=== PATIENT | male | born 1945 | race Two or more races ===

== ENCOUNTER 2025-04-03 20:44 | Inpatient (IN) | payer OTHER ==
[~2025-04-03] VITALS: Ht 172.7 cm; Wt 86.2 kg
[2025-04-03] MEDS ORDERED: FUROSEMIDE20 MG PO (20:52)
[2025-04-03] MEDS ORDERED: FARXIGA5 MG (20:52)
[2025-04-03] MEDS ORDERED: [UNRECOGNIZED DRUG - OTHER] (20:53)
[2025-04-03] MEDS ORDERED: ATORVASTATIN CA10 MG (20:53)
--- NOTE | 2025-04-03 21:03 | NUR ---
PACIENTE ALERTA Y ORIENTADO X3 QUIEN REFIERE VENIR POR DOLOR ABDOMINAL EL CUAL SE HABIA REALIZADO UNOS ESTUDIOS Y RESULTADOS LE LLEAGRON HACE 1-2 YA SOBRE PIEDRAS EN LA VESICULA.
[2025-04-03] MEDS ORDERED: ONDANSETRON HCL 2 MG/ML VIAL IV ONE (21:30)
[2025-04-03] MEDS ORDERED: MORPHINE SULFATE 4 MG/ML VIAL IV ONE (21:30)
[2025-04-03] MEDS ORDERED: 0.9 % SODIUM CHLORIDE 1,000 ML IV SCH (21:30)
--- NOTE | 2025-04-03 22:12 | NUR ---
SE ORIENTA A PACIENTE SOBRE ORDEN MEDICA EL MISMO REFIERE ENTENDER Y ACEPTAR.
[2025-04-03 22:36] LABS: URINE APPEARANCE Clear; URINE BILIRRUBIN Negative (NEGATIVE); URINE BLOOD Negative; URINE COLOR Yellow; URINE KETONE Negative (NEGATIVE); URINE LEUKOCYTE Negative; URINE NITRATE Negative; URINE PROTEIN Negative (NEGATIVE); URINE UROBILINOGEN 0.2 E.U./dl
[2025-04-03 22:40] LABS: URINE BACTERIA 59.9 uL (0.0-1933); URINE CAST 0.29 uL (0.0-1.40); URINE EPITHELIAL CELLS 3.0 uL (0.0-38.8); URINE GLUCOSE >=1000 MG/DL (NEGATIVE); URINE RBC 2.7 uL (0.0-20.8); URINE WBC 8.1 uL (0.0-23.2)
[2025-04-03 23:10] LABS: BASO % 0.5 % (0.1-1.2); EOS # 0.11 (0.04-0.54); EOS % 0.8 % (0.7-7.0); LYMPH # 1.61 (1.18-3.74); LYMPH % 11.7 % (19.3-53.1); MEAN PLATELET VOLUME 11.90 fl (9.4-12.4); MONO # 0.94 (0.24-0.82); MONO % 6.8 % (4.7-12.5); NEUT # 11.03 (1.56-6.13); NEUT % 79.9 % (34.0-71.1); RED CELL DISTRIBUTION WIDTH 14.1 % (11.6-14.4)
[2025-04-03 23:33] LABS: ALT/SGPT 44.0 U/L (12-78); AST/SGOT 18.0 U/L (15-37); BILIRUBIN TOTAL 0.93 mg/dL (0.3-1.2); BUN CREA RATIO 13.0 (7.0-25.0); CREATININE SERUM 1.71 mg/dL (0.70-1.30); GFR 38.61; GLOBULINA 3.3 G/DL (2.4-3.5); GLUCOSE FASTING 138.0 mg/dL (65-100); OSMOLALITY SERUM 290.0 MOSM/KG (275-295)
[2025-04-04] MEDS ORDERED: PIPERACILLIN/TAZOBACTAM SODIUM 3.375 GM VIAL IV STA (00:45)
[2025-04-04] MEDS ORDERED: HYOSCYAMINE SULFATE 0.125 MG TAB.SUBL SL ONE (03:45)
[2025-04-04] MEDS ORDERED: KETOROLAC TROMETHAMINE 30 MG VIAL IV STA (03:46)
[2025-04-04] MEDS ORDERED: MORPHINE SULFATE 4 MG/ML VIAL IV STA (03:46)
[2025-04-04] MEDS ORDERED: HYOSCYAMINE SULFATE 0.125 MG TAB.SUBL ONE (03:50)
[2025-04-04] MEDS ORDERED: KETOROLAC TROMETHAMINE 30 MG VIAL ONE (03:50)
[2025-04-04 05:00] LABS: BILIRUBIN TOTAL 1.24 mg/dL (0.3-1.2)
[2025-04-04 05:01] LABS: BILIRUBIN,CONJUGATED 0.28 mg/dL (0.0-0.2)
--- NOTE | 2025-04-04 07:30 | NUR ---
SE RECIBE PTE MASCULINO DE 79 YRS ALERTA CONCIENTE Y TRANQUILO . SE LE RONEY S/V Y SE DOCUEMTA .SE MANTIENE CONSULATADO CON EL ARMANDO ELDER INTERNISTA. POR EL STANLEY ELDER. SE OBSERVA PT CON IVF'S PATBETENY ACACIA DE EDEMA Y AL MOMENTO ACACIA DE DOLOR ABDOMINAL. SE OBSERVA POR CAMBIOS EN HODGE CONDICION.
[2025-04-04 10:11] LABS: BASO % 0.3 % (0.1-1.2); EOS # 0.02 (0.04-0.54); EOS % 0.1 % (0.7-7.0); LYMPH # 1.64 (1.18-3.74); LYMPH % 10.0 % (19.3-53.1); MEAN PLATELET VOLUME 11.60 fl (9.4-12.4); MONO # 1.43 (0.24-0.82); MONO % 8.7 % (4.7-12.5); NEUT # 13.27 (1.56-6.13); NEUT % 80.5 % (34.0-71.1); RED CELL DISTRIBUTION WIDTH 14.5 % (11.6-14.4)
[2025-04-04] MEDS ORDERED: MORPHINE SULFATE 2 MG/ML SYRINGE IV STA (15:28)
[2025-04-04] MEDS ORDERED: INSULIN LISPRO 1,000 UNIT/10 ML UNITS SUBCUTANEO PRN (17:15)
[2025-04-04] MEDS ORDERED: DEXTROSE 50 % IN WATER 0.5 G/ML DISP.SYRIN IV PRN (17:15)
[2025-04-04] MEDS ORDERED: 0.9 % SODIUM CHLORIDE 1,000 ML IV SCH (17:15)
[2025-04-04] MEDS ORDERED: POTASSIUM CHLORIDE 20MEQ/100ML H2O PB IV ONE ×2 (17:15→17:22)
[2025-04-04 17:16] VITALS: BP 130/80
[2025-04-04] MEDS ORDERED: PIPERACILLIN/TAZOBACTAM SODIUM 3.375 GM VIAL IV SCH (17:16)
[2025-04-04] MEDS ORDERED: PIPERACILLIN/TAZOBACTAM SODIUM 3.375 GM VIAL IV ONE (17:22)
[2025-04-04] MEDS ORDERED: ACETAMINOPHEN 325 MG TABLET PO PRN (17:30)
[2025-04-04] MEDS ORDERED: MORPHINE SULFATE 2 MG/ML CARTRIDGE IV PRN (17:30)
[2025-04-04 18:04] VITALS: BP 118/62; O2SAT 96
[2025-04-04 18:33] LABS: INR 1.13
[2025-04-04] MEDS ORDERED: LABETALOL HCL 100 MG/20 ML ML IV PUSH PRN (18:45)
[2025-04-04 20:48] VITALS: BP 115/76; O2SAT 98
[2025-04-05 01:19] VITALS: BP 102/66; O2SAT 96
[2025-04-05 08:00] VITALS: BP 147/77; O2SAT 98
[2025-04-05] MEDS ORDERED: ENOXAPARIN SODIUM 40 MG/0.4 ML SYRINGE SUBCUTANEO SCH (09:00)
[2025-04-05] MEDS ORDERED: MORPHINE SULFATE 4 MG/ML CARTRIDGE IV PRN (09:51)
[2025-04-05] MEDS ORDERED: DICYCLOMINE HCL 20 MG TABLET PO SCH (09:51)
[2025-04-05] MEDS ORDERED: PANTOPRAZOLE SODIUM 40 MG/VIAL VIAL IV SCH (09:51)
[2025-04-05 16:22] VITALS: BP 128/75; O2SAT 96
[2025-04-05] MEDS ORDERED: CEFTRIAXONE SODIUM 2,000 MG in 0.9 % SODIUM CHLORIDE 100 ML IV SCH (19:09)
[2025-04-06 01:07] VITALS: BP 124/84; O2SAT 94
[2025-04-06 08:00] VITALS: BP 126/81; O2SAT 97
[2025-04-06 11:15] LABS: URINE APPEARANCE Cloudy; URINE BILIRRUBIN Negative (NEGATIVE); URINE BLOOD Trace; URINE COLOR Dark Yellow; URINE KETONE 15 (NEGATIVE); URINE LEUKOCYTE Negative; URINE NITRATE Negative; URINE UROBILINOGEN 1.0 E.U./dl
[2025-04-06 11:19] LABS: URINE BACTERIA 91.1 uL (0.0-1933); URINE CAST 3.07 uL (0.0-1.40); URINE EPITHELIAL CELLS 19.0 uL (0.0-38.8); URINE RBC 9.9 uL (0.0-20.8); URINE WBC 18.1 uL (0.0-23.2)
[2025-04-06 11:51] LABS: URINE CRYSTALS FEW /HPF; URINE GLUCOSE 500 MG/DL (NEGATIVE); URINE PROTEIN 100 (NEGATIVE)
[2025-04-06 12:03] LABS: ALT/SGPT 28.0 U/L (12-78); AST/SGOT 29.0 U/L (15-37); BILIRUBIN TOTAL 1.46 mg/dL (0.3-1.2); BUN CREA RATIO 16.0 (7.0-25.0); CREATININE SERUM 1.36 mg/dL (0.70-1.30); GFR 50.29; GLOBULINA 3.2 G/DL (2.4-3.5); GLUCOSE FASTING 102.0 mg/dL (65-100); OSMOLALITY SERUM 290.0 MOSM/KG (275-295)
[2025-04-06 14:33] LABS: BASO % 0.3 % (0.1-1.2); EOS # 0.04 (0.04-0.54); EOS % 0.4 % (0.7-7.0); LYMPH # 1.61 (1.18-3.74); LYMPH % 17.3 % (19.3-53.1); MEAN PLATELET VOLUME 12.20 fl (9.4-12.4); MONO # 1.15 (0.24-0.82); NEUT # 6.45 (1.56-6.13); NEUT % 69.4 % (34.0-71.1); RED CELL DISTRIBUTION WIDTH 14.3 % (11.6-14.4)
[2025-04-06 14:36] LABS: MONO % 12.4 % (4.7-12.5)
[2025-04-06 16:41] VITALS: BP 127/86; O2SAT 95
[2025-04-07 00:23] VITALS: BP 125/83; O2SAT 95
[2025-04-07 06:00] LABS: BASO % 0.5 % (0.1-1.2); EOS # 0.13 (0.04-0.54); EOS % 1.6 % (0.7-7.0); LYMPH # 1.51 (1.18-3.74); LYMPH % 18.1 % (19.3-53.1); MEAN PLATELET VOLUME 11.70 fl (9.4-12.4); MONO # 1.18 (0.24-0.82); NEUT # 5.46 (1.56-6.13); NEUT % 65.5 % (34.0-71.1); RED CELL DISTRIBUTION WIDTH 14.3 % (11.6-14.4)
[2025-04-07 06:18] LABS: MONO % 14.2 % (4.7-12.5)
[2025-04-07 07:15] LABS: BUN CREA RATIO 15.0 (7.0-25.0); CREATININE SERUM 1.1 mg/dL (0.70-1.30); GFR 64.25; GLUCOSE FASTING 86.0 mg/dL (65-100); OSMOLALITY SERUM 290.0 MOSM/KG (275-295)
[2025-04-07 08:00] VITALS: BP 135/77; O2SAT 96
[2025-04-07] MEDS ORDERED: CHLORPROMAZINE HCL 25 MG TABLET PO SCH (13:00)
[2025-04-07] MEDS ORDERED: LACTOBACILLUS ACIDOPHILUS 1 CAP CAP PO SCH (13:00)
[2025-04-07 17:00] VITALS: BP 158/95; O2SAT 98
[2025-04-08 01:51] VITALS: BP 142/72; O2SAT 96
[2025-04-08 08:39] VITALS: BP 146/90; O2SAT 95
== END 2025-04-08 13:13 | disposition home or self-care (01) | DRG 445 ==
LOC: ER 20:44 → SURH 04-04 17:14
PROVIDERS: Emergency Medicine; General Practice; Internal Medicine Infectious Disease; ADMIT Internal Medicine; ATTEND Internal Medicine
PROC: BW21ZZZ Computerized Tomography (CT Scan) of Abdomen and Pelvis (ICD-10-PCS; 2025-04-03)
PROC: BW40ZZZ Ultrasonography of Abdomen (ICD-10-PCS; principal; 2025-04-04)
DX: K80.20 Calculus of gallbladder without cholecystitis without obstruction (principal); N20.1 Calculus of ureter; N18.9 Chronic kidney disease, unspecified; E87.6 Hypokalemia; D72.829 Elevated white blood cell count, unspecified